=== PATIENT | male | born 1965 | race Two or more races ===

== ENCOUNTER 2016-09-14 18:43 | Emergency (ER) | payer OTHER, MEDICAID ==
[~2016-09-14] VITALS: Ht 167.6 cm; Wt 73.9 kg
[2016-09-14 19:12] VITALS: BP 122/84
[2016-09-14] MEDS ORDERED: IBUPROFEN 600 MG TAB PO ONE (21:30)
== END 2016-09-14 21:53 | disposition home or self-care (01) ==
LOC: ER 18:48
DX: S93.401A Sprain of unspecified ligament of right ankle, initial encounter (principal); X50.1XXA Overexertion from prolonged static or awkward postures, initial encounter; Y93.01 Activity, walking, marching and hiking; Y99.8 Other external cause status; Y92.89 Other specified places as the place of occurrence of the external cause
CPT/HCPCS: 29515; 73610

== ENCOUNTER 2017-10-27 09:39 | Emergency (ER) | payer OTHER, MEDICAID ==
[~2017-10-27] VITALS: Ht 167.6 cm; Wt 74.4 kg
[2017-10-27 09:48] VITALS: BP 137/94
== END 2017-10-27 11:55 | disposition home or self-care (01) ==
LOC: ER 09:39
DX: H66.91 Otitis media, unspecified, right ear (principal)

== ENCOUNTER 2018-08-26 12:30 | Emergency (ER) | payer OTHER, MEDICAID ==
[~2018-08-26] VITALS: Ht 167.6 cm; Wt 73.9 kg
[2018-08-26 12:50] VITALS: BP 139/86
[2018-08-26] MEDS ORDERED: KETOROLAC TROMETH 60MG/2ML VIAL IM ONE (14:00)
== END 2018-08-26 14:36 | disposition home or self-care (01) ==
LOC: ER 12:30
DX: M43.17 Spondylolisthesis, lumbosacral region (principal); G89.29 Other chronic pain; E11.9 Type 2 diabetes mellitus without complications; E78.5 Hyperlipidemia, unspecified
CPT/HCPCS: 72100; 81002; 93005; 96372; 99283; J1885

== ENCOUNTER 2019-03-01 16:02 | Inpatient (IN) | payer OTHER, MEDICAID ==
[~2019-03-01] VITALS: Ht 167.6 cm; Wt 77.0 kg
[2019-03-01 16:41] LABS: Basophils # (auto) 0 uL; Basophils % (auto) 0.7 % (0.0-2.0); Eosinophils # (auto) 0.2 uL; Eosinophils % (auto) 2.7 % (0.0-7.0); Hematocrit 40.8 % (41.0-53.0); Hemoglobin 13.6 g/dL (13.5-17.5); Lymphocytes # (auto) 2.2 uL; Lymphocytes % (auto) 30.5 % (10.0-50.0); Mean Corpuscular Hemoglobin 30.4 pg (28.0-32.0); Mean Corpuscular Hgb Conc. 33.3 g/dL (32.0-36.0); Mean Corpuscular Volume 91.4 fL (80.0-100.0); Monocytes # (auto) 0.4 uL; Monocytes % (auto) 5.5 % (0.0-12.0); Neutrophils # (auto) 4.3 uL; Neutrophils % (auto) 60.6 % (37.0-80.0); Platelet Count (auto) 262 10^3/uL (140-450); Red Blood Cells 4.46 10^6/uL (4.5-5.90); Red Cell Distribution Width 13.9 % (11.8-14.3); White Blood Cell 7.1 10^3/uL (4.4-10.8)
[2019-03-01] MEDS ORDERED: ASPirin 81 mg TAB PO ONE ×2 (16:45)
[2019-03-01 16:58] LABS: Alanine Aminotransferase 33 U/L (16-61); Albumin 3.6 g/dL (3.4-5.0); Anion Gap 4 (5-15); Aspartate Aminotransferase 18 U/L (15-37); BUN/Creatinine Ratio 13.2; Blood Urea Nitrogen 14 mg/dL (7-18); Calcium 8.7 mg/dL (8.5-10.1); Carbon Dioxide 30 mmol/L (21-32); Chloride 108 mmol/L (98-107); GFR African American 93 mL/min; GFR Non-African American 77 mL/min; Glucose 125 mg/dL (74-106); Magnesium 2.5 mg/dL (1.6-2.6); Potassium 3.9 mmol/L (3.5-5.1); Sodium 142 mmol/L (136-145)
[2019-03-01 17:04] LABS: Alkaline Phosphatase 76 U/L (45-117); Bilirubin, Total 0.3 mg/dL (0.2-1.0); Total Protein 7.4 g/dL (6.4-8.2)
[2019-03-01] MEDS ORDERED: ONDANSETRON HCL 4 MG/2 ML VIAL IV PRN (22:30)
[2019-03-01] MEDS ORDERED: ACETAMINOPHEN 325 MG TAB PO PRN (22:30)
[2019-03-01] MEDS ORDERED: TEMAZEPAM 15 MG CAP PO PRN (22:30)
[2019-03-01 23:10] LABS: Cholesterol 201 mg/dL (< 200); Triglycerides 290 mg/dL (< 150)
[2019-03-01 23:13] LABS: HDL Cholesterol 37 mg/dL (40-59); LDL Cholesterol 120 mg/dL (< 100)
[2019-03-01] MEDS ORDERED: MORPHINE SULF INJ 2 MG/ML SYRINGE 1ML IV PRN (23:15)
[2019-03-01] MEDS ORDERED: NITROGLYCERIN 0.4 MG SL TAB SL PRN (23:15)
[2019-03-02] VITALS (7 sets, daily range): BP systolic 111–124; BP diastolic 73–80
[2019-03-02] MEDS ORDERED: LOSA-49 PO (02:10)
[2019-03-02] MEDS ORDERED: METF-370 PO (02:10)
[2019-03-02] MEDS ORDERED: PRAV20TA3 PO (02:11)
[2019-03-02 08:47] LABS: Basophils # (auto) 0 uL; Basophils % (auto) 0.7 % (0.0-2.0); Eosinophils # (auto) 0.2 uL; Eosinophils % (auto) 3.4 % (0.0-7.0); Hematocrit 41.9 % (41.0-53.0); Hemoglobin 14.3 g/dL (13.5-17.5); Lymphocytes # (auto) 1.9 uL; Lymphocytes % (auto) 32.9 % (10.0-50.0); Mean Corpuscular Hemoglobin 31.3 pg (28.0-32.0); Mean Corpuscular Hgb Conc. 34.1 g/dL (32.0-36.0); Mean Corpuscular Volume 91.8 fL (80.0-100.0); Monocytes # (auto) 0.3 uL; Monocytes % (auto) 4.9 % (0.0-12.0); Neutrophils # (auto) 3.4 uL; Neutrophils % (auto) 58.1 % (37.0-80.0); Nucleated Red Blood Cells % 0.2 %; Platelet Count (auto) 254 10^3/uL (140-450); Red Blood Cells 4.56 10^6/uL (4.5-5.90); Red Cell Distribution Width 13.6 % (11.8-14.3); White Blood Cell 5.9 10^3/uL (4.4-10.8)
[2019-03-02 09:04] LABS: Anion Gap 4 (5-15); Blood Urea Nitrogen 16 mg/dL (7-18); Calcium 8.6 mg/dL (8.5-10.1); Carbon Dioxide 29 mmol/L (21-32); Chloride 107 mmol/L (98-107); Glucose 121 mg/dL (74-106); Potassium 4.1 mmol/L (3.5-5.1); Sodium 140 mmol/L (136-145)
[2019-03-02 09:11] LABS: BUN/Creatinine Ratio 16.2; GFR African American 101 mL/min; GFR Non-African American 83 mL/min
[2019-03-02] MEDS ORDERED: FAMOTIDINE 20 MG TAB PO SCH (10:00)
[2019-03-02] MEDS ORDERED: LOSARTAN POTASSIUM 50 MG TAB PO SCH (10:00)
[2019-03-02] MEDS ORDERED: ASPirin 81 mg TAB PO SCH (10:00)
--- NOTE | 2019-03-02 11:30 | NUR ---
DR ADDISON VEGA
--- NOTE | 2019-03-02 11:50 | NUR ---
PER DR JAIME PATIENT CAN BE DISCHARGED IF CLEARED BY DR HERRERA CARDIOLOGY.
--- NOTE | 2019-03-02 14:45 | NUR ---
CALLED DR VU OFFICE AND SPOKE TO HIM DIRECTLY . PER DR HERRERA PATIENT IS CLEARED FOR DISCHARGE AND SHOULD FOLLOW UP IN 1 WEEK AND TAKE ASA [address] HERRERA, "HE SHOULD TAKE IT EASY". CARDIAC WORK UP CAN BE DONE OUT PATIENT.
[2019-03-02] MEDS ORDERED: PRAVASTATIN SODIUM 20 MG TAB PO SCH (22:00)
== END 2019-03-02 15:53 | disposition home or self-care (01) | DRG 313 ==
LOC: ER 16:03 → TELE 16:04 → TELE-WESTW 23:39
PROVIDERS: ADMIT Nurse Practitioner; ATTEND Internal Medicine Geriatric Medicine
DX: R07.89 Other chest pain (principal); E11.9 Type 2 diabetes mellitus without complications; E78.5 Hyperlipidemia, unspecified; I10 Essential (primary) hypertension
CPT/HCPCS: 36415; 71046; 80048; 80053; 80061; 83735; 83880; 84484; 85025; 93005; 93306; 94761; G0378

== ENCOUNTER 2019-07-16 20:00 | Emergency (ER) | payer OTHER, MEDICAID ==
[~2019-07-16] VITALS: Ht 167.6 cm; Wt 73.9 kg
[~2019-07-16 20:00] MED LIST: LOSA-39 PO; METF-370 PO; PRAV20TA3 PO
[2019-07-16] MEDS ORDERED: ACETAMINOPHEN 500 MG TAB PO ONE ×2 (20:55→21:00)
[2019-07-16 21:14] LABS: Basophils # (auto) 0.1 uL; Basophils % (auto) 0.4 % (0.0-2.0); Eosinophils # (auto) 0 uL; Hematocrit 43.7 % (41.0-53.0); Hemoglobin 14.5 g/dL (13.5-17.5); Lymphocytes # (auto) 0.6 uL; Lymphocytes % (auto) 3.3 % (10.0-50.0); Mean Corpuscular Hemoglobin 30.5 pg (28.0-32.0); Mean Corpuscular Hgb Conc. 33.3 g/dL (32.0-36.0); Mean Corpuscular Volume 91.6 fL (80.0-100.0); Monocytes # (auto) 0.7 uL; Monocytes % (auto) 4.1 % (0.0-12.0); Neutrophils % (auto) 92.2 % (37.0-80.0); Platelet Count (auto) 241 10^3/uL (140-450); Red Blood Cells 4.77 10^6/uL (4.5-5.90); White Blood Cell 17.4 10^3/uL (4.4-10.8)
[2019-07-16 21:28] LABS: Albumin 3.5 g/dL (3.4-5.0); Calcium 8.4 mg/dL (8.5-10.1); Potassium 3.7 mmol/L (3.5-5.1)
[2019-07-16 21:30] LABS: Bilirubin, Total 0.7 mg/dL (0.2-1.0)
[2019-07-16 21:37] LABS: Urine Bacteria NONE SEEN /hpf (None Seen); Urine Blood Negative /uL (Negative); Urine Mucus FEW (None Seen); Urine Specific Gravity 1.034 (1.001-1.035); Urine WBC 5 /hpf (0 - 3)
[2019-07-16] MEDS ORDERED: SODIUM CHLORIDE 0.9% 1,000 ML IV ONE (21:45)
[2019-07-16] MEDS ORDERED: cefTRIAXone 1GM/50ML D5W 50 ML IV ONE (22:15)
[2019-07-17 02:58] LABS: Basophils # (auto) 0 uL; Basophils % (auto) 0.1 % (0.0-2.0); Eosinophils # (auto) 0 uL; Hematocrit 43.8 % (41.0-53.0); Hemoglobin 14.3 g/dL (13.5-17.5); Lymphocytes % (auto) 6.2 % (10.0-50.0); Mean Corpuscular Hemoglobin 31.3 pg (28.0-32.0); Mean Corpuscular Hgb Conc. 32.7 g/dL (32.0-36.0); Mean Corpuscular Volume 95.6 fL (80.0-100.0); Monocytes # (auto) 1.1 uL; Monocytes % (auto) 6.5 % (0.0-12.0); Neutrophils # (auto) 14.8 uL; Neutrophils % (auto) 87.2 % (37.0-80.0); Nucleated Red Blood Cells % 0.1 %; Platelet Count (auto) 193 10^3/uL (140-450); Red Blood Cells 4.58 10^6/uL (4.5-5.90); Red Cell Distribution Width 14.6 % (11.8-14.3)
[2019-07-17 03:05] LABS: INR 1.11 (0.9-1.15); Partial Thromboplastin Time 26.1 sec (23.64-32.05)
[2019-07-17 03:11] LABS: Albumin 3.1 g/dL (3.4-5.0); Anion Gap 7 (5-15); BUN/Creatinine Ratio 12.3; Blood Urea Nitrogen 13 mg/dL (7-18); Carbon Dioxide 23 mmol/L (21-32); Chloride 107 mmol/L (98-107); GFR African American 93 mL/min; GFR Non-African American 77 mL/min; Glucose 152 mg/dL (74-106); Potassium 4.1 mmol/L (3.5-5.1); Sodium 137 mmol/L (136-145)
[2019-07-17 03:12] LABS: Lactic Acid w/Reflex 2.4 mmol/L (0.4-2.0)
[2019-07-17 03:18] LABS: Alanine Aminotransferase 31 U/L (16-61); Alkaline Phosphatase 78 U/L (45-117); Aspartate Aminotransferase 13 U/L (15-37); Bilirubin, Total 0.5 mg/dL (0.2-1.0); Total Protein 7.4 g/dL (6.4-8.2)
[2019-07-17] MEDS ORDERED: SODIUM CHLORIDE 0.9% 1,000 ML IV ONE (04:30)
[2019-07-17] MEDS ORDERED: ONDANSETRON HCL 4 MG/2 ML VIAL IV ONE ×2 (04:30→09:30)
[2019-07-17] MEDS ORDERED: VANCOMYCIN PER PHARMACY 0 MG IV SCH (04:30)
[2019-07-17] MEDS ORDERED: VANCOMYCIN 1GM/250ML 250 ML IV ONE (05:00)
[2019-07-17] MEDS ORDERED: ACETAMINOPHEN 325 MG TAB PO ONE (05:00)
[2019-07-17] MEDS ORDERED: VANCOMYCIN 1GM/250ML 250 ML IV SCH (06:00)
[2019-07-17] MEDS ORDERED: IBUPROFEN 800 MG TAB PO ONE (06:30)
[2019-07-17] MEDS ORDERED: MORPHINE SULF INJ 2 MG/ML SYRINGE 1ML IV ONE (09:30)
[2019-07-17 11:31] VITALS: BP 114/78
== END 2019-07-17 11:58 | disposition short-term general hospital (02) ==
LOC: ER 20:02
DX: R65.20 Severe sepsis without septic shock (principal); E11.9 Type 2 diabetes mellitus without complications; E78.5 Hyperlipidemia, unspecified; I10 Essential (primary) hypertension
CPT/HCPCS: 36415; 71045; 74176; 80053; 81001; 83605; 84484; 85025; 85610; 85730; 87040; 87804; 93005; 96361; 96365; 96366; 96367; 96375; 99285; J0696; J2270; J2405; J3370; J7030

== ENCOUNTER 2021-08-26 02:36 | Emergency (ER) | payer OTHER, MEDICAID ==
[~2021-08-26] VITALS: Ht 167.6 cm; Wt 73.9 kg
[2021-08-26 04:02] VITALS: BP 151/89
[2021-08-26] MEDS ORDERED: IBUP800T27 PO (04:08)
[2021-08-26] MEDS ORDERED: AMOX875T3 PO (04:08)
== END 2021-08-26 04:19 | disposition home or self-care (01) ==
LOC: ER 02:36
DX: H66.92 Otitis media, unspecified, left ear (principal); E11.9 Type 2 diabetes mellitus without complications; E78.5 Hyperlipidemia, unspecified; I10 Essential (primary) hypertension

== ENCOUNTER 2022-01-14 11:48 | Emergency (ER) | payer OTHER, MEDICAID ==
[~2022-01-14] VITALS: Ht 167.6 cm; Wt 73.9 kg
[2022-01-14 11:48] VITALS: BP 135/85
[~2022-01-14 11:48] MED LIST changes: +AMOX875T3 PO; +IBUP800T27 PO
[2022-01-14] MEDS ORDERED: methylPREDNISolone SOD SUCC 125 MG/2 ML VL IM ONE (14:15)
[2022-01-14] MEDS ORDERED: EPINEPHrine HCL 1 MG/1 ML AMP SC ONE (14:15)
[2022-01-14] MEDS ORDERED: METH4PAK PO (14:27)
[2022-01-14] MEDS ORDERED: TRIA0.02 TOP (14:27)
== END 2022-01-14 14:34 | disposition home or self-care (01) ==
LOC: ER 11:48
DX: T63.441A Toxic effect of venom of bees, accidental (unintentional), initial encounter (principal); I10 Essential (primary) hypertension; E11.9 Type 2 diabetes mellitus without complications; E78.5 Hyperlipidemia, unspecified; Z79.1 Long term (current) use of non-steroidal anti-inflammatories (NSAID); Z79.2 Long term (current) use of antibiotics; Z79.899 Other long term (current) drug therapy; Y92.89 Other specified places as the place of occurrence of the external cause
CPT/HCPCS: 96372; 99284; J0171; J2930

== ENCOUNTER 2022-08-27 14:50 | Emergency (ER) | payer OTHER, MEDICAID ==
[~2022-08-27] VITALS: Ht 175.3 cm; Wt 77.5 kg
[~2022-08-27 14:50] MED LIST changes: +METH4PAK PO; +TRIA0.02 TOP
[2022-08-27] MEDS ORDERED: SODIUM CHLORIDE 0.9% 500 ML IV ONE (15:00)
[2022-08-27] MEDS ORDERED: MORPHINE SULFATE INJ 2 MG/ml SYRG ONE (15:11)
[2022-08-27] MEDS ORDERED: ONDANSETRON HCL 4 MG/2 ML VIAL ONE (15:12)
[2022-08-27] MEDS ORDERED: MORPHINE SULFATE INJ 2 MG/ml SYRG IV ONE ×2 (15:15→15:45)
[2022-08-27] MEDS ORDERED: ONDANSETRON HCL 4 MG/2 ML VIAL IV ONE (15:15)
[2022-08-27] MEDS ORDERED: NOREPINEPHRINE 8 MG/250ML KIT 250 ML IV ONE (15:19)
[2022-08-27] MEDS ORDERED: NOREPINEPHRINE 8 MG/250ML KIT 250 ML IV SCH ×2 (15:30→15:45)
[2022-08-27] MEDS ORDERED: ceFAZolin 1GM/50ML 50 ML IV ONE (15:30)
[2022-08-27] MEDS ORDERED: LIDOCAINE W/ EPINEPHRINE 2% INJ 20ML VIAL ONE (15:42)
[2022-08-27] MEDS ORDERED: LIDOCAINE 1% (LOCAL ANESTH.) PF 5ml SDV ID ONE (15:45)
[2022-08-27] MEDS ORDERED: TETANUS-DIPTH-ACEL PERTUSSIS 0.5ML SYR Tdap IM ONE (15:45)
[2022-08-27 15:51] LABS: Basophils # (auto) 0.1 10 ^3/uL (0-0.2); Basophils % (auto) 0.6 % (0.0-2.0); Eosinophils # (auto) 0.1 10 ^3/uL (0-0.8); Eosinophils % (auto) 0.7 % (0.0-7.0); Hematocrit 36.4 % (41.0-53.0); Hemoglobin 12.1 g/dL (13.5-17.5); Lymphocytes % (auto) 25.6 % (10.0-50.0); Mean Corpuscular Hemoglobin 30.2 pg (28.0-32.0); Mean Corpuscular Hgb Conc. 33.3 g/dL (32.0-36.0); Mean Corpuscular Volume 90.9 fL (80.0-100.0); Monocytes # (auto) 0.7 10 ^3/uL (0-1.3); Monocytes % (auto) 5.8 % (0.0-12.0); Neutrophils # (auto) 7.8 10 ^3/uL (1.6-8.6); Neutrophils % (auto) 67.3 % (37.0-80.0); Nucleated Red Blood Cells % 0.1 %; Red Cell Distribution Width 13.3 % (11.8-14.3); White Blood Cell 11.5 10^3/uL (4.4-10.8)
[2022-08-27 16:06] LABS: INR 1.03 (0.9-1.15); Partial Thromboplastin Time 22.1 sec (24.6-33.4)
[2022-08-27 16:08] LABS: Albumin 2.8 g/dL (3.4-5.0); Calcium 7.6 mg/dL (8.5-10.1); Potassium 4.1 mmol/L (3.5-5.1)
[2022-08-27 16:09] LABS: BUN/Creatinine Ratio 11.7
[2022-08-27 16:18] LABS: Bilirubin, Total 0.2 mg/dL (0.2-1.0); Total Protein 5.9 g/dL (6.4-8.2)
[2022-08-27] MEDS ORDERED: HYDROmorphone HCL 2 MG/ML VL/or syr IV ONE (17:30)
[2022-08-27 19:00] LABS: Urine Bacteria NONE SEEN /hpf (None Seen); Urine Blood Negative /uL (Negative); Urine Specific Gravity 1.016 (1.001-1.035); Urine WBC <1 /hpf (0 - 3)
[2022-08-27 20:43] VITALS: BP 124/75
== END 2022-08-27 21:04 | disposition hospice, inpatient (51) ==
LOC: EDBD 14:50 → ER 14:52
DX: S62.162B Displaced fracture of pisiform, left wrist, initial encounter for open fracture (principal); S62.13 Fracture of capitate [os magnum] bone; I10 Essential (primary) hypertension; E78.5 Hyperlipidemia, unspecified; Z79.899 Other long term (current) drug therapy; Z79.2 Long term (current) use of antibiotics; Z20.822 Contact with and (suspected) exposure to COVID-19; W26.8XXA Contact with other sharp object(s), not elsewhere classified, initial encounter; Y93.89 Activity, other specified; Y92.89 Other specified places as the place of occurrence of the external cause
CPT/HCPCS: 29125; 36415; 36430; 73090; 73200; 80053; 81001; 85025; 85610; 85730; 86850; 86900; 86901; 86920; 87426; 90471; 90715; 96365; 96368; 96375; 96376; 99285; J0690; J1170; J2270; J2405; J7040; P9016

== ENCOUNTER 2023-06-08 14:13 | Emergency (ER) | payer OTHER, MEDICAID ==
[~2023-06-08] VITALS: Ht 167.6 cm; Wt 70.4 kg
[~2023-06-08 14:13] MED LIST changes: +IBUP-1456 PO; -IBUP800T27 PO; -LOSA-39 PO; +LOSA100T58 PO
[2023-06-08 16:04] LABS: Urine Bacteria NONE SEEN /hpf (None Seen); Urine Blood Negative /uL (Negative); Urine Clarity Clear (Clear); Urine Color Yellow (Yellow); Urine Mucus MODERATE (None Seen); Urine Protein, UAD TRACE (Negative); Urine Specific Gravity 1.032 (1.001-1.035); Urine WBC 4 /hpf (0 - 3); Urine pH 5.5 (5.0-8.0)
[2023-06-08] MEDS ORDERED: METOCLOPRAMIDE HCL 5MG/ml INJ 2ml VIAL IV ONE (19:30)
[2023-06-08] MEDS ORDERED: HYDROmorphone HCL 2 MG/ML VL/or syr IV ONE (19:30)
[2023-06-08] MEDS ORDERED: SODIUM CHLORIDE 0.9% 1,000 ML IV ONE (19:30)
[2023-06-08 20:15] VITALS: BP 137/88; PULSE 81; RESP 19; TEMP 97.7; O2SAT 96
[2023-06-08 20:28] LABS: Alanine Aminotransferase 28 U/L (7-40); Albumin 4.4 g/dL (3.2-4.8); Alkaline Phosphatase 95 U/L (46-116); Anion Gap 6 (5-15); Aspartate Aminotransferase 10 U/L (13-40); BUN/Creatinine Ratio 8.1 (10.0-20.0); Blood Urea Nitrogen 8 mg/dL (9-23); Calcium 9.3 mg/dL (8.7-10.4); Carbon Dioxide 25 mmol/L (20-30); Chloride 107 mmol/L (98-107); Glucose 101 mg/dL (74-106); Lipase 42 U/L (12-53); Magnesium 2.3 mg/dL (1.6-2.6); Potassium 3.8 mmol/L (3.5-5.1); Sodium 138 mmol/L (136-145)
[2023-06-08 20:29] LABS: Bilirubin, Total 0.7 mg/dL (0.2-1.0); Total Protein 7.7 g/dL (5.7-8.2)
[2023-06-08] MEDS ORDERED: LACT10SO3 PO (21:41)
[2023-06-08] MEDS ORDERED: SENN-58 PO (21:41)
[2023-06-08] MEDS ORDERED: SODIENE35 RE (21:41)
[2023-06-08 23:23] LABS: Hematocrit 45.8 % (41.0-53.0); Hemoglobin 14.7 g/dL (13.5-17.5); Mean Corpuscular Volume 92.5 fL (80.0-100.0); Red Blood Cells 4.95 10^6/uL (4.5-5.90); White Blood Cell 10.2 10^3/uL (4.4-10.8)
[2023-06-08 23:24] LABS: Basophils % (auto) 0.6 % (0.0-2.0); Eosinophils % (auto) 5.1 % (0.0-7.0); Lymphocytes % (auto) 28.1 % (10.0-50.0); Mean Corpuscular Hemoglobin 29.7 pg (28.0-32.0); Mean Corpuscular Hgb Conc. 32.1 g/dL (32.0-36.0); Monocytes % (auto) 4.9 % (0.0-12.0); Neutrophils % (auto) 60.8 % (37.0-80.0); Red Cell Distribution Width 13.3 % (11.8-14.3)
[2023-06-08 23:25] LABS: Basophils # (auto) 0.06 10 ^3/uL (0-0.2); Eosinophils # (auto) 0.52 10 ^3/uL (0-0.8); Lymphocytes # (auto) 2.86 10 ^3/uL (0.4-5.4); Monocytes # (auto) 0.5 10 ^3/uL (0-1.3); Neutrophils # (auto) 6.17 10 ^3/uL (1.6-8.6)
== END 2023-06-08 21:50 | disposition home or self-care (01) ==
LOC: ER 14:13
DX: K59.01 Slow transit constipation (principal); R10.13 Epigastric pain; R91.1 Solitary pulmonary nodule; K76.0 Fatty (change of) liver, not elsewhere classified; E11.9 Type 2 diabetes mellitus without complications; I10 Essential (primary) hypertension; E78.5 Hyperlipidemia, unspecified; Z79.1 Long term (current) use of non-steroidal anti-inflammatories (NSAID); Z79.2 Long term (current) use of antibiotics; Z79.899 Other long term (current) drug therapy
CPT/HCPCS: 36415; 71046; 74177; 80053; 81001; 83690; 83735; 85025; 93005; 99285; Q9967

== ENCOUNTER 2023-07-06 21:37 | Emergency (ER) | payer OTHER, MEDICAID ==
[~2023-07-06] VITALS: Ht 167.6 cm; Wt 72.0 kg
[~2023-07-06 21:37] MED LIST changes: +LACT10SO3 PO; +SENN-58 PO; +SODIENE35 RE
[2023-07-06 21:42] VITALS: BP 127/91; RESP 18; O2SAT 97
[2023-07-06 21:52] VITALS: PULSE 106
[2023-07-06 21:54] VITALS: TEMP 100.4
[2023-07-06] MEDS ORDERED: ACETAMINOPHEN 325 MG TAB PO ONE (22:00)
[2023-07-06 23:04] LABS: Basophils # (auto) 0 10 ^3/uL (0-0.2); Basophils % (auto) 0.5 % (0.0-2.0); Eosinophils # (auto) 0.1 10 ^3/uL (0-0.8); Eosinophils % (auto) 1.2 % (0.0-7.0); Hematocrit 42.1 % (41.0-53.0); Hemoglobin 14.1 g/dL (13.5-17.5); Lymphocytes # (auto) 1.4 10 ^3/uL (0.4-5.4); Lymphocytes % (auto) 20.1 % (10.0-50.0); Mean Corpuscular Hgb Conc. 33.5 g/dL (32.0-36.0); Mean Corpuscular Volume 89.3 fL (80.0-100.0); Monocytes # (auto) 0.7 10 ^3/uL (0-1.3); Monocytes % (auto) 10.1 % (0.0-12.0); Neutrophils # (auto) 4.8 10 ^3/uL (1.6-8.6); Neutrophils % (auto) 68.1 % (37.0-80.0); Red Blood Cells 4.71 10^6/uL (4.5-5.90)
[2023-07-06 23:28] LABS: Alanine Aminotransferase 29 U/L (7-40); Albumin 4.6 g/dL (3.2-4.8); Alkaline Phosphatase 75 U/L (46-116); Anion Gap 10 (5-15); Aspartate Aminotransferase 21 U/L (13-40); BUN/Creatinine Ratio 11.8 (10.0-20.0); Bilirubin, Total 0.5 mg/dL (0.2-1.0); Blood Urea Nitrogen 12 mg/dL (9-23); Carbon Dioxide 25 mmol/L (20-30); Chloride 99 mmol/L (98-107); Glucose 123 mg/dL (74-106); Potassium 3.8 mmol/L (3.5-5.1); Sodium 134 mmol/L (136-145); Total Protein 7.8 g/dL (5.7-8.2)
[2023-07-06 23:42] LABS: Urine Bacteria NONE SEEN /hpf (None Seen); Urine Blood Negative /uL (Negative); Urine Clarity Clear (Clear); Urine Color Yellow (Yellow); Urine Protein, UAD TRACE (Negative); Urine Specific Gravity 1.024 (1.001-1.035); Urine Urobilinogen Normal (Negative); Urine WBC <1 /hpf (0 - 3); Urine pH 5.5 (5.0-8.0)
[2023-07-07] MEDS ORDERED: IBUP-1455 PO (01:53)
== END 2023-07-07 05:19 | disposition left against medical advice (07) ==
LOC: ER 21:37
DX: R07.82 Intercostal pain (principal); R10.9 Unspecified abdominal pain; R07.81 Pleurodynia; I10 Essential (primary) hypertension; E11.9 Type 2 diabetes mellitus without complications; E78.5 Hyperlipidemia, unspecified; Z79.1 Long term (current) use of non-steroidal anti-inflammatories (NSAID); Z79.2 Long term (current) use of antibiotics; Z79.899 Other long term (current) drug therapy
CPT/HCPCS: 36415; 71101; 80053; 81001; 83605; 84484; 85025; 87040; 93005

== ENCOUNTER 2023-12-14 15:29 | Emergency (ER) | payer OTHER, MEDICAID ==
[~2023-12-14] VITALS: Ht 167.6 cm; Wt 72.6 kg
[~2023-12-14 15:29] MED LIST changes: +IBUP-1455 PO; +LOSA-535 PO; -LOSA100T58 PO
[2023-12-14 16:20] VITALS: BP 126/92; PULSE 98; RESP 16; TEMP 99.7; O2SAT 93
[2023-12-14] MEDS: ACETAMINOPHEN 500 MG TAB PO ONE (17:16)
[2023-12-14] MEDS ORDERED: METH-1182 PO (17:17)
[2023-12-14] MEDS ORDERED: IBUP-1456 PO (17:17)
== END 2023-12-14 17:26 | disposition home or self-care (01) ==
LOC: ER 15:29
DX: S93.401A Sprain of unspecified ligament of right ankle, initial encounter (principal); S63.502A Unspecified sprain of left wrist, initial encounter; S39.012A Strain of muscle, fascia and tendon of lower back, initial encounter; E11.9 Type 2 diabetes mellitus without complications; I10 Essential (primary) hypertension; E78.5 Hyperlipidemia, unspecified; Z79.899 Other long term (current) drug therapy; W13.2XXA Fall from, out of or through roof, initial encounter; Y93.89 Activity, other specified; Y92.89 Other specified places as the place of occurrence of the external cause; Y99.8 Other external cause status
CPT/HCPCS: 72100; 72220; 73110; 73610

== ENCOUNTER 2024-06-23 22:05 | Emergency (ER) | payer OTHER, MEDICAID ==
[~2024-06-23] VITALS: Ht 167.6 cm; Wt 72.8 kg
[~2024-06-23 22:05] MED LIST changes: +METH-1182 PO
[2024-06-24] MEDS ORDERED: KETOROLAC TROMETH 30 MG/ML 1ML VIAL IV ONE (01:00)
[2024-06-24 01:06] VITALS: BP 132/87; PULSE 80; RESP 18; TEMP 98; O2SAT 97
[2024-06-24] MEDS: KETOROLAC TROMETH 60MG/2ML VIAL IM ONE (01:22)
[2024-06-24] MEDS ORDERED: IBUP-1454 PO (01:36)
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
== END 2024-06-24 02:34 | disposition home or self-care (01) ==
LOC: ER 22:05
DX: S63.592A Other specified sprain of left wrist, initial encounter (principal); E11.9 Type 2 diabetes mellitus without complications; E78.5 Hyperlipidemia, unspecified; I10 Essential (primary) hypertension; Z79.899 Other long term (current) drug therapy; Z98.890 Other specified postprocedural states; V89.2XXA Person injured in unspecified motor-vehicle accident, traffic, initial encounter; Y93.89 Activity, other specified; Y92.89 Other specified places as the place of occurrence of the external cause; Y99.8 Other external cause status
CPT/HCPCS: 73110; 96372; 99283; J1885